=== PATIENT | female | born 1930 | race Caucasian/White ===

== ENCOUNTER 2017-09-16 | Observation (INO) | payer OTHER, MEDICARE | END 2017-09-17 14:07 | disposition home or self-care (01) | PROVIDERS: ADMIT Orthopaedic Surgery | PROC: 0MQN4ZZ Repair Right Knee Bursa and Ligament, Percutaneous Endoscopic Approach (ICD-10-PCS; principal; 2017-09-16) | PROC: 0SBC4ZZ Excision of Right Knee Joint, Percutaneous Endoscopic Approach (ICD-10-PCS; principal; 2017-09-16) | DX: M17.11 Unilateral primary osteoarthritis, right knee (principal); M23.203 Derangement of unspecified medial meniscus due to old tear or injury, right knee; M23.200 Derangement of unspecified lateral meniscus due to old tear or injury, right knee; I10 Essential (primary) hypertension; M81.0 Age-related osteoporosis without current pathological fracture; G47.30 Sleep apnea, unspecified | CPT/HCPCS: 29880; 97116; 97161; G8978; G8979; G8980; J1170; J2704 ==